=== PATIENT | female | born 1995 | race Caucasian/White ===

== ENCOUNTER 2016-10-19 23:24 | Emergency (ER) | payer SELFPAY ==
[2016-10-19 23:39] LABS: APPEARANCE CLEAR (CLEAR); BACTERIA NONE SEEN /hpf (NONE SEEN); BILIRUBIN NEGATIVE (NEGATIVE); COLOR YELLOW (YELLOW); EPITHELIAL CELLS RARE /hpf (0-5); GLUCOSE NEGATIVE (NEGATIVE); KETONE NEGATIVE (NEGATIVE); LEUKOCYTE ESTERASE NEGATIVE (NEGATIVE); NITRITE NEGATIVE (NEGATIVE); PROTEIN NEGATIVE (NEGATIVE); RED CELLS - URINE 0-5 /hpf (0-5); UROBILINOGEN NORMAL (NORMAL); WHITE CELLS - URINE 0-5 /hpf (0-5)
[2016-10-19 23:41] LABS: HEMATOCRIT 41.1 % (36.0-48.0); HEMOGLOBIN 14.7 g/dL (12-16); LYMPHOCYTES 48.2 % (15-50); MCH 32.7 pg (26.0-34.0); MCHC 35.8 g/dL (31.0-37.0); MCV 91.3 fL (80.0-100.0); MEAN PLATELET VOLUME 9.5 fL (7.4-10.4); NEUTROPHILS 44.3 % (40-80); PLATELET COUNT 272 10x3/uL (130-400); RDW 11.8 % (11.5-14.5); WBC 7.6 10x3/uL (4.8-10.8)
[2016-10-19 23:55] LABS: HCG SERUM NEGATIVE (NEGATIVE)
[2016-10-19 23:56] LABS: AMYLASE - SERUM 86 U/L (25-115); LIPASE 268 U/L (73-393)
[2016-10-19 23:59] LABS: ALBUMIN 3.9 g/dL (3.4-5.0); ALKALINE PHOSPHATASE 57 U/L (46-116); ALT (SGPT) 23 U/L (10-68); CALC OSMOLALITY 279 mosm/kg (275-300); CALCIUM 9.5 mg/dL (8.5-10.1); CARBON DIOXIDE 29.8 mmol/L (21.0-32.0); CHLORIDE - SERUM 102 mmol/L (98-107); CREATININE - SERUM 0.9 mg/dL (0.6-1.3); GLUCOSE 84 mg/dL (74-106); POTASSIUM - SERUM 4.1 mmol/L (3.5-5.1); PROTEIN - SERUM 7.9 g/dL (6.4-8.2); SODIUM 140 mmol/L (136-145); UREA NITROGEN 19 mg/dL (7-18); eGFR NON AFRICAN AMERICAN 85 mL/min (90-120)
== END 2016-10-20 00:30 | disposition home or self-care (01) ==
LOC: D.ER 23:24
PROVIDERS: Family Medicine; Nurse Practitioner Family
DX: A08.4 Viral intestinal infection, unspecified (principal); R11.10 Vomiting, unspecified

== ENCOUNTER 2016-11-27 16:42 | Emergency (ER) | payer MEDICAID ==
[2016-11-27 17:23] LABS: BASOPHILS 0.1 % (0-2); EOSINOPHILS 0.4 % (0-7); HEMATOCRIT 39.1 % (36.0-48.0); HEMOGLOBIN 13.6 g/dL (12-16); IMMATURE GRANULOCYTES 0.1 % (0-5); LYMPHOCYTES 29.5 % (15-50); MCH 32.6 pg (26.0-34.0); MCHC 34.8 g/dL (31.0-37.0); MCV 93.8 fL (80.0-100.0); MEAN PLATELET VOLUME 9.5 fL (7.4-10.4); MONOCYTES 6.5 % (2-11); NEUTROPHILS 63.4 % (40-80); PLATELET COUNT 288 10x3/uL (130-400); RBC 4.17 10x6/uL (4.00-5.40); RDW 12.4 % (11.5-14.5)
== END 2016-11-27 19:27 | disposition home or self-care (01) ==
LOC: D.ER 16:42
PROVIDERS: Family Medicine
DX: Z03.89 Encounter for observation for other suspected diseases and conditions ruled out (principal); Z3A.08 8 weeks gestation of pregnancy

== ENCOUNTER 2017-01-18 15:33 | Emergency (ER) | payer MEDICAID | END 2017-01-18 16:28 | disposition home or self-care (01) | LOC: D.ER 15:33 | DX: L02.415 Cutaneous abscess of right lower limb (principal) ==

== ENCOUNTER 2017-07-24 21:08 | Inpatient (IN) | payer MEDICAID ==
[~2017-07-24] VITALS: Ht 162.6 cm; Wt 93.9 kg
--- NOTE | ~2017-07-24 | DS ---
PATIENT:SHASHA PADILLA :89 MEDICAL RECORD: [id number] DISCHARGE SUMMARY ADMISSION DATE: 07/24/17 DISCHARGE DATE: 07/26/17 DATE OF ADMISSION: 07/24/2017 DATE OF DISCHARGE: 07/26/2017 ADMISSION DIAGNOSIS: Term . DISCHARGE DIAGNOSIS: Mother delivered at term. PROCEDURE: Vaginal delivery. HISTORY OF PRESENT ILLNESS AND INDICATION FOR HOSPITALIZATION: See the H&P in the chart. SUMMARY OF HOSPITALIZATION: The patient was admitted for induction of labor and had subsequent vaginal delivery. The patient had an unremarkable course. At the time of discharge, contraception was discussed. The patient was discharged home with follow up with [facility] in 6 weeks. Standard precautions have been reviewed. TRANSINT:[id number] Voice Confirmation ID: [id number] DOCUMENT ID: [id number] AFTAB VALIENTE MD at 1727 CC: [id number] DICTATION DATE: 08/20/17 0719 COACH WIRER: 08/20/17 1408 DIS IN 07/26/17 [id number] [place] [address]
--- NOTE | ~2017-07-24 | OP ---
PATIENT NAME: SHASHA PADILLA MEDICAL RECORD: [id number] :89 LOCATION:[id number] ADMISSION DATE:07/24/17 SURGEON: MEDARDO ARRIOLA MD DATE OF OPERATION: 07/24/2017 PREDELIVERY DIAGNOSES: 1. at 39 weeks' gestational age. 2. Nonreassuring tracing. POSTDELIVERY DIAGNOSES: 1. Mother delivered at 39 weeks' gestation. 2. Nonreassuring tracing. PROCEDURE: Vacuum-assisted vaginal delivery. ATTENDING: Medardo Arriola MD ANESTHETIC: A 10 mL of 1% lidocaine without epinephrine after the procedure. FINDINGS: Viable male , vertex presentation, DAINA. Nuchal cord times 1 reduced. Deep variable decelerations and terminal bradycardic event necessitating vacuum assist. DESCRIPTION OF PROCEDURE: After verbal consent given, a Kiwi applied and over 3 expulsive efforts, infant delivered. Second-degree laceration with 2-0 and 4-0 chromic repair. is 6 pounds 10 ounces with Apgars of 7 and 9. ESTIMATED BLOOD LOSS: 400 cc. DISPOSITION: Mother and recovered in the room. TRANSINT:[id number] Voice Confirmation ID: [id number] DOCUMENT ID: [id number] MEDARDO ARRIOLA MD at 1308 CC: [id number] DICTATION DATE: 07/24/17 233 HYDROMETER CALIBRATOR: 07/25/17 0244 DIS IN 07/26/17 [facility] [address] [id number]
[2017-07-24] MEDS ORDERED: PRENATAL-U CA1 UDCAP PO (21:54)
[2017-07-24 22:22] VITALS: BP 126/81; BMI 35.6
[2017-07-24 22:47] LABS: HEMATOCRIT 38.4 % (36.0-48.0); HEMOGLOBIN 13.5 g/dL (12-16); MCH 34.6 pg (26.0-34.0); MCHC 35.2 g/dL (31.0-37.0); MCV 98.5 fL (80.0-100.0); MEAN PLATELET VOLUME 11.8 fL (7.4-10.4); RBC 3.9 10x6/uL (4.00-5.40); RDW 13.9 % (11.5-14.5); WBC 11.8 10x3/uL (4.8-10.8)
[2017-07-24 22:52] LABS: UDS - AMPHET NEGATIVE QUAL (NEGATIVE); UDS - BARB NEGATIVE QUAL (NEGATIVE); UDS - BENZO NEGATIVE QUAL (NEGATIVE); UDS - COCAINE NEGATIVE QUAL (NEGATIVE); UDS - OPIATE NEGATIVE QUAL (NEGATIVE); UDS - PCP NEGATIVE QUAL (NEGATIVE); UDS - THC NEGATIVE QUAL (NEGATIVE)
[2017-07-25] VITALS (7 sets, daily range): BP systolic 110–133; BP diastolic 57–86; Ht 162.6 cm; Wt 93.9 kg
[2017-07-26 07:10] VITALS: BP 128/74
[2017-07-26 07:29] LABS: RAPID PLASMA REAGIN Non Reactive (Non Reactive)
[2017-07-26] MEDS ORDERED: IBUPROFEN800 MG PO (12:02)
== END 2017-07-26 12:15 | disposition home or self-care (01) | DRG 775 ==
LOC: D.LDO 21:08 → D.LD 21:10 → D.LDO 22:00 → D.LD 22:02
PROVIDERS: Obstetrics & Gynecology
PROC: 10D07Z6 Extraction of Products of Conception, Vacuum, Via Natural or Artificial Opening (ICD-10-PCS; principal; 2017-07-24)
PROC: 0KQM0ZZ Repair Perineum Muscle, Open Approach (ICD-10-PCS; 2017-07-24)
DX: O76 Abnormality in fetal heart rate and rhythm complicating labor and delivery (principal); Z3A.39 39 weeks gestation of pregnancy; Z37.0 Single live birth; O70.1 Second degree perineal laceration during delivery; O69.81X0 Labor and delivery complicated by cord around neck, without compression, not applicable or unspecified

== ENCOUNTER 2017-08-25 12:26 | Emergency (ER) | payer MEDICAID ==
[2017-07-25 13:45] VITALS: BMI 35.5
[~2017-08-25 12:26] MED LIST: IBUPROFEN800 MG PO; PRENATAL-U CA1 UDCAP PO
== END 2017-08-25 14:15 | disposition home or self-care (01) ==
LOC: D.ER 12:26
DX: Z04.1 Encounter for examination and observation following transport accident (principal)

== ENCOUNTER 2017-09-14 09:51 | Emergency (ER) | payer MEDICAID ==
[2017-07-25 13:45] VITALS: BMI 35.5
[2017-09-14 11:10] LABS: HCG URINE NEGATIVE (NEGATIVE)
[2017-09-14 11:15] LABS: APPEARANCE HAZY (CLEAR); BACTERIA MODERATE /hpf (NONE SEEN); BILIRUBIN NEGATIVE (NEGATIVE); COLOR YELLOW (YELLOW); GLUCOSE NEGATIVE (NEGATIVE); KETONE NEGATIVE (NEGATIVE); NITRITE NEGATIVE (NEGATIVE); PROTEIN NEGATIVE (NEGATIVE); SPECIFIC GRAVITY 1.015 (1.005-1.020); WHITE CELLS - URINE 0-5 /hpf (0-5)
[2017-09-14 11:16] LABS: MUCUS <1+ /lpf (NONE SEEN)
== END 2017-09-14 11:45 | disposition home or self-care (01) ==
LOC: D.ER 09:51
PROVIDERS: Physician Assistant
DX: J06.9 Acute upper respiratory infection, unspecified (principal); J20.9 Acute bronchitis, unspecified; R35.0 Frequency of micturition

== ENCOUNTER 2017-12-10 19:52 | Emergency (ER) | payer MEDICAID ==
[~2017-12-10] VITALS: Ht 162.6 cm; Wt 54.5 kg
[2017-12-10 20:00] VITALS: Ht 162.6 cm; Wt 54.5 kg
[2017-12-10 21:27] LABS: BASOPHILS 0.2 % (0-2); EOSINOPHILS 0.4 % (0-7); HEMATOCRIT 38.5 % (36.0-48.0); HEMOGLOBIN 13.7 g/dL (12-16); IMMATURE GRANULOCYTES 0.1 % (0-5); LYMPHOCYTES 31.1 % (15-50); MCH 31.9 pg (26.0-34.0); MCHC 35.6 g/dL (31.0-37.0); MCV 89.5 fL (80.0-100.0); MEAN PLATELET VOLUME 10.5 fL (7.4-10.4); MONOCYTES 6.7 % (2-11); NEUTROPHILS 61.5 % (40-80); RDW 12.6 % (11.5-14.5); WBC 8.2 10x3/uL (4.8-10.8)
[2017-12-10 21:40] LABS: PLATELET COUNT 259 10x3/uL (130-400)
[2017-12-10 22:06] LABS: ALBUMIN 3.4 g/dL (3.4-5.0); ALKALINE PHOSPHATASE 60 U/L (46-116); ALT (SGPT) 28 U/L (10-68); BILIRUBIN - TOTAL 0.42 mg/dL (0.2-1.3); CALC OSMOLALITY 276 mosm/kg (275-300); CALCIUM 8.1 mg/dL (8.5-10.1); CARBON DIOXIDE 27.3 mmol/L (21.0-32.0); CHLORIDE - SERUM 106 mmol/L (98-107); CREATININE - SERUM 0.7 mg/dL (0.6-1.3); GLUCOSE 83 mg/dL (74-106); POTASSIUM - SERUM 3.6 mmol/L (3.5-5.1); PROTEIN - SERUM 6.7 g/dL (6.4-8.2); SODIUM 139 mmol/L (136-145); UREA NITROGEN 12 mg/dL (7-18); eGFR NON AFRICAN AMERICAN > 90 mL/min (90-120)
[2017-12-10 22:06] LABS: APPEARANCE CLEAR (CLEAR); COLOR YELLOW (YELLOW); SPECIFIC GRAVITY 1.025 (1.005-1.020)
[2017-12-10 22:07] LABS: BACTERIA MANY /hpf (NONE SEEN); BILIRUBIN NEGATIVE (NEGATIVE); GLUCOSE NEGATIVE (NEGATIVE); KETONE NEGATIVE (NEGATIVE); MUCUS <1+ /lpf (NONE SEEN); NITRITE NEGATIVE (NEGATIVE); PROTEIN TRACE mg/dL (NEGATIVE); RED CELLS - URINE 0-5 /hpf (0-5); UROBILINOGEN NORMAL (NORMAL)
[2017-12-10 22:16] LABS: HCG URINE NEGATIVE (NEGATIVE)
[2017-12-10] MEDS ORDERED: TORADOL10 MG PO (22:35)
[2017-12-10] MEDS ORDERED: MACROBID100 MG PO (22:35)
[2017-12-10 23:18] VITALS: BP 132/85
[2017-12-13 09:18] LABS: CHLAMYDIA TRACHOMATIS, NAA Negative (Negative)
== END 2017-12-10 23:18 | disposition home or self-care (01) ==
LOC: D.ER 19:52
PROVIDERS: Family Medicine
DX: R10.31 Right lower quadrant pain (principal); N39.0 Urinary tract infection, site not specified

== ENCOUNTER 2018-05-02 14:54 | Emergency (ER) | payer MEDICAID ==
[~2018-05-02] VITALS: Ht 162.6 cm; Wt 74.1 kg
[~2018-05-02 14:54] MED LIST changes: +MACROBID100 MG PO; +TORADOL10 MG PO
[2018-05-02 15:25] VITALS: Ht 162.6 cm; Wt 74.1 kg
[2018-05-02 16:14] LABS: HCG SERUM NEGATIVE (NEGATIVE)
[2018-05-02 17:15] VITALS: BP 112/74
== END 2018-05-02 17:15 | disposition home or self-care (01) ==
LOC: D.ER 14:54
PROVIDERS: Family Medicine
DX: R42 Dizziness and giddiness (principal)

== ENCOUNTER 2018-05-27 02:01 | Emergency (ER) | payer MEDICAID ==
[~2018-05-27] VITALS: Ht 162.6 cm; Wt 45.5 kg
[2018-05-27 02:03] VITALS: Ht 162.6 cm; Wt 45.5 kg
[2018-05-27 03:20] LABS: APPEARANCE CLEAR (CLEAR); BILIRUBIN NEGATIVE (NEGATIVE); COLOR YELLOW (YELLOW); GLUCOSE NEGATIVE (NEGATIVE); KETONE NEGATIVE (NEGATIVE); NITRITE NEGATIVE (NEGATIVE); PROTEIN NEGATIVE (NEGATIVE); SPECIFIC GRAVITY 1.015 (1.005-1.020); UROBILINOGEN NORMAL (NORMAL)
[2018-05-27 03:36] VITALS: BP 125/77
== END 2018-05-27 03:37 | disposition home or self-care (01) ==
LOC: D.ER 02:01
PROVIDERS: Family Medicine
DX: O20.0 Threatened abortion (principal); Z3A.00 Weeks of gestation of pregnancy not specified

== ENCOUNTER 2019-01-13 20:10 | Inpatient (IN) | payer MEDICAID ==
[~2019-01-13] VITALS: Ht 162.6 cm; Wt 90.3 kg
[2019-01-13] MEDS ORDERED: PRENAVITE1 TAB PO (21:54)
[2019-01-13 22:07] VITALS: BP 111/63; Ht 162.6 cm; Wt 90.3 kg
[2019-01-13 23:04] LABS: HEMATOCRIT 31.9 % (36.0-48.0); HEMOGLOBIN 10.7 g/dL (12-16); MCH 28.8 pg (26.0-34.0); MCHC 33.5 g/dL (31.0-37.0); MEAN PLATELET VOLUME 11.9 fL (7.4-10.4); RBC 3.71 10x6/uL (4.00-5.40); RDW 13.8 % (11.5-14.5); WBC 8.3 10x3/uL (4.8-10.8)
[2019-01-14 01:22] LABS: UDS - AMPHET NEGATIVE QUAL (NEGATIVE); UDS - BARB NEGATIVE QUAL (NEGATIVE); UDS - BENZO NEGATIVE QUAL (NEGATIVE); UDS - COCAINE NEGATIVE QUAL (NEGATIVE); UDS - OPIATE NEGATIVE QUAL (NEGATIVE); UDS - PCP NEGATIVE QUAL (NEGATIVE); UDS - THC NEGATIVE QUAL (NEGATIVE)
[2019-01-14 07:06] VITALS: BP 101/55
--- NOTE | 2019-01-14 07:06 | NUR ---
RECEIVED PT SITTING UP IN BED. AWAKE. AAO X 3. VSS. HRRR WITHOUT AUDIBLE MURMUR. BBS CLEAR. BS X 4. ABDOMEN SOFT/NON-DISTENDED. FUNDUS FIRM AT U/1. RUBRA LOCHIA SMALL AMT. NO CLOTS NOTED. PERINEUM WITH SLIGHT EDEMA. ICE PACK TO PERINEUM PER PT REQUEST. NEG HOMANS' SIGN. PPP. NO EDEMA NOTED TO BLE. SL TO RIGHT HAND. SITE CLEAR. FLUSHES EASILY WITH 10 ML NS. PT DENIES C/O. SR UP X 2. CALL LIGHT IN REACH.
--- NOTE | 2019-01-14 09:01 | NUR ---
PT RINGS CALL LIGHT REPORTING SHE'S READY FOR TRANSFER. THIS RN TO BEDSIDE. PT CURRENTLY UP TO BR. ABLE TO VOID. PERFORMS SELF PERICARE. CLEAN PANTIES,PAD AND GOWN PROVIDED. PT TRANSFERED AMBULATORY TO BR [id number]. PT CURRENTLY DENIES PAIN. FRESH ICE WATER SERVED. PT DENIES FURTHER NEEDS.
--- NOTE | 2019-01-14 09:54 | NUR ---
PT REQUESTS AND RECEIVES ICE PACK FOR PERINEUM.
--- NOTE | 2019-01-14 10:00 | NUR ---
ROUNDS MADE. PT LYING IN BED AWAKE VISITING W/GUESTS. PAIN AND NEEDS ASSESSED. PT REQUEST A SPRITE TO DRINK AND SOMETHING TO EAT. SPRITE SERVED. DIETARY CALLED TO BRING PT A SANDWICH TRAY. PT INFORMED .
--- NOTE | 2019-01-14 10:30 | NUR ---
PT REQUESTING TO GET IN THE SHOWER. BATHING ITEMS PROVIDED. PT'S IV SITE COVERED. PT PLANS TO SHOWER.
--- NOTE | 2019-01-14 10:50 | NUR ---
THIS RN TO ROOM TO TRANSFER PT'S BELONGINGS TO WS. PT STILL HAS NOT SHOWERED, CURRENTLY CHANGING PT'S DIAPER THEN SHE PLANS TO SHOWER.
--- NOTE | 2019-01-14 11:06 | NUR ---
PT NOW READY TO SHOWER. PT'S IV SITE COVERED. PT AWAITNG SIG OTHER TO ARRIVE SO SHE MAY GET IN THE SHOWER.
[2019-01-14 13:20] VITALS: BP 86/49
[2019-01-14 16:00] VITALS: BP 99/57
--- NOTE | 2019-01-14 16:10 | NUR ---
sitting up in bed holding . denies needs. no requests. vs done.
--- NOTE | 2019-01-14 17:45 | NUR ---
RECEIVED SHIFT REPORT FROM STEPAN SULLIVAN RN
--- NOTE | 2019-01-14 18:36 | NUR ---
ASSESSMENT PER FLOW SHEET, VS OBTAINED, SALINE LOCK IN RIGHT HAND INTACT WITH NO REDNESS OR EDEMA, FF, ML, U/1, PT REPORTS LITE BLEEDING WITH NO CLOTS, +FLATUS, NO BM AND VOIDING WITH NO DIFFICULTY, C/O CRAMPING, ADM MOTRIN PER MD ORDERS, SEE EMAR, FRESH H20 SERVED AND CUP OF ICE PROVIDED TO FAMILY MEMBER, PT DENIES FURTHER NEEDS, INFANT IN OPEN CRIB CART AT BEDSIDE
--- NOTE | 2019-01-14 19:19 | NUR ---
PT HOLDING INFANT, RATES CRAMPING 0/10, DENIES NEEDS, FAMILY MEMBER AT BEDSIDE
--- NOTE | 2019-01-14 20:02 | NUR ---
PT PRE SALES NETWORK ENGINEER LIGHT, PT REQUESTED AND PROVIDED INFANT BLANKET AND SHIRT, ALSO, GOWN FOR SELF, REPORTS INFANT SPIT UP ON GOWN, PT DENIES FURTHER NEEDS OR PAIN AT THIS TIME, FAMILY MEMBER HOLDING AT THIS TIME
--- NOTE | 2019-01-14 21:08 | NUR ---
PT WAVE GUIDE ASSEMBLER LIGHT, PT REQUESTED AND SERVED SANDWICH TRAY, BEDDING PROVIDED TO FAMILY MEMBER, IN OPEN CRIB CART AT BEDSIDE, PT DENIES FURTHER NEEDS
--- NOTE | 2019-01-14 22:21 | NUR ---
PT AWAKE, REQUESTED AND SERVED FRESH H20, DENIES FURHTER NEEDS OR PAIN, INFANT IN OPEN CRIB CART AND FAMILY MEMBER AT BEDSIDE
--- NOTE | 2019-01-15 00:15 | NUR ---
PT RESTING WITH EYES CLOSED, RESP QUIET, NO DISTRESS NOTED, LEFT UNDISTURBED AT THIS TIME, IN OPEN CRIB CART AND FAMILY MEMBER AT BEDSIDE
--- NOTE | 2019-01-15 02:04 | NUR ---
PT AWAKE, HOLDING INFANT, DENIES NEEDS OR PAIN AT THIS TIME, FAMILY MEMBER AT BEDSIDE
--- NOTE | 2019-01-15 04:00 | NUR ---
PT RESTING WITH EYES CLOSED, RESP QUIET, NO DISTRESS NOTED, LEFT UNDISTURBED AT THIS TIME, IN OPEN CRIB CART AND FAMILY MEMBER ASLEEP AT BEDSIDE
--- NOTE | 2019-01-15 06:15 | NUR ---
PT AWAKE, HOLDING INFANT, DENIES PAIN, REQUESTED AND SERVED FRESH H20, DENIES FURTHER NEEDS, FAMILY MEMBER ASLEEP AT BEDSIDE
[2019-01-15 07:10] LABS: BASOPHILS 0.1 % (0-2); EOSINOPHILS 0.6 % (0-7); HEMATOCRIT 30.8 % (36.0-48.0); HEMOGLOBIN 10.1 g/dL (12-16); IMMATURE GRANULOCYTES 0.5 % (0-5); MCH 28.5 pg (26.0-34.0); MCHC 32.8 g/dL (31.0-37.0); MCV 86.8 fL (80.0-100.0); NEUTROPHILS 59.8 % (40-80); PLATELET COUNT 212 10x3/uL (130-400); RBC 3.55 10x6/uL (4.00-5.40); RDW 13.9 % (11.5-14.5); WBC 9.5 10x3/uL (4.8-10.8)
--- NOTE | 2019-01-15 07:15 | NUR ---
Dr. Ordonez on unit and to room for am rounds.
[2019-01-15 07:30] VITALS: BP 105/68
--- NOTE | 2019-01-15 07:30 | NUR ---
am assessment completed, pt denies heavy bleeding or passing clots. pt is sitting up in the bed, holding . pt's grandmother asleep on pull out bedisde chair. pt denies all other needs at this time. srup x2, cl/phone within reach.
--- NOTE | 2019-01-15 07:35 | NUR ---
DIETARY SERVES REGULAR BREAKFAST TRAY.
--- NOTE | 2019-01-15 09:11 | NUR ---
rounding completed by this RN. pt sitting up in bed with family at bedside. pt denies pain and all other needs at this time. srupx2, call light and phone within reach.
--- NOTE | 2019-01-15 10:15 | NUR ---
rounding completed by this RN. see emar for intermediate project manager. water provided at pt request. pt in bed holding infant with family at bedside. pt denies pain and all other needs at this time.
[2019-01-15 13:10] LABS: RAPID PLASMA REAGIN Non Reactive (Non Reactive)
--- NOTE | 2019-01-15 13:20 | NUR ---
dr. moreno calls to unit, progress report given to . telephone order received to discharge pt home, to follow up in clinic in 6 weeks, for pt to know that if she has sex in that 6 week period she can become , and for pt to take otc tylenol 325 mg one po q 6 hrs prn pain.
[2019-01-15] MEDS ORDERED: ACETAMINOPHEN325 MG PO (13:32)
--- NOTE | 2019-01-15 14:00 | NUR ---
to pt's room, saline lock removed with cath intact, pt grazyna well. pt now dressing for discharge. pt provided with peripads/panties for discharge.
--- NOTE | 2019-01-15 14:15 | NUR ---
PT OFF UNIT VIA WHEELCHAIR WITH VOLUNTARY SERVICES. IN CARSEAT. PT AND INFANT STABLE.
== END 2019-01-15 14:15 | disposition home or self-care (01) | DRG 807 ==
LOC: D.LD 20:10 → D.WS 01-14 12:15
PROVIDERS: Obstetrics & Gynecology; ADMIT Student in an Organized Health Care Education/Training Program; ATTEND Student in an Organized Health Care Education/Training Program
PROC: 10E0XZZ Delivery of Products of Conception, External Approach (ICD-10-PCS; principal; 2019-01-14)
PROC: 0HQ9XZZ Repair Perineum Skin, External Approach (ICD-10-PCS; 2019-01-14)
DX: O70.0 First degree perineal laceration during delivery (principal); Z37.0 Single live birth; Z3A.39 39 weeks gestation of pregnancy

== ENCOUNTER 2019-06-12 13:47 | Emergency (ER) | payer MEDICAID ==
[~2019-06-12] VITALS: Ht 162.6 cm; Wt 72.7 kg
[~2019-06-12 13:47] MED LIST changes: +ACETAMINOPHEN325 MG PO; +IBUPROFEN600 MG PO; +IUD; +PRENAVITE1 TAB PO
[2019-06-12 13:53] VITALS: Ht 162.6 cm; Wt 72.7 kg
[2019-06-12 14:19] LABS: BASOPHILS 0.2 % (0-2); EOSINOPHILS 0.7 % (0-7); HEMATOCRIT 41.7 % (36.0-48.0); HEMOGLOBIN 14.4 g/dL (12-16); LYMPHOCYTES 40.5 % (15-50); MCH 30.4 pg (26.0-34.0); MCHC 34.5 g/dL (31.0-37.0); MCV 88.2 fL (80.0-100.0); MEAN PLATELET VOLUME 10.2 fL (7.4-10.4); MONOCYTES 6.4 % (2-11); NEUTROPHILS 52.2 % (40-80); RBC 4.73 10x6/uL (4.00-5.40); RDW 13.8 % (11.5-14.5); WBC 5.8 10x3/uL (4.8-10.8)
[2019-06-12 14:23] LABS: PLATELET COUNT 315 10x3/uL (130-400)
[2019-06-12 14:23] LABS: HCG URINE NEGATIVE (NEGATIVE)
[2019-06-12 14:25] LABS: APPEARANCE HAZY (CLEAR); BILIRUBIN NEGATIVE (NEGATIVE); COLOR YELLOW (YELLOW); GLUCOSE NEGATIVE (NEGATIVE); KETONE NEGATIVE (NEGATIVE); NITRITE NEGATIVE (NEGATIVE); PROTEIN NEGATIVE (NEGATIVE); SPECIFIC GRAVITY 1.025 (1.005-1.020)
[2019-06-12 14:26] LABS: MUCUS >1+ /lpf (NONE SEEN); RED CELLS - URINE 0-5 /hpf (0-5); WHITE CELLS - URINE OCC /hpf (NEGATIVE)
[2019-06-12 14:37] LABS: CALC OSMOLALITY 282 mosm/kg (275-300); CALCIUM 9.1 mg/dL (8.5-10.1); CARBON DIOXIDE 28.7 mmol/L (21.0-32.0); CHLORIDE - SERUM 105 mmol/L (98-107); CREATININE - SERUM 0.8 mg/dL (0.6-1.3); GLUCOSE 77 mg/dL (74-106); POTASSIUM - SERUM 3.8 mmol/L (3.5-5.1); SODIUM 142 mmol/L (136-145); UREA NITROGEN 15 mg/dL (7-18); eGFR NON AFRICAN AMERICAN > 90 mL/min (90-120)
[2019-06-12 14:43] LABS: ALBUMIN 3.9 g/dL (3.4-5.0); ALKALINE PHOSPHATASE 62 U/L (30-120); ALT (SGPT) 29 U/L (10-68); BILIRUBIN - TOTAL 0.45 mg/dL (0.2-1.3)
[2019-06-12] MEDS ORDERED: ZOFRAN ODT4 MG/UDTAB PO (15:38)
[2019-06-12 15:46] VITALS: BP 100/61
== END 2019-06-12 15:46 | disposition home or self-care (01) ==
LOC: D.ER 13:47
PROVIDERS: Family Medicine
DX: K52.9 Noninfective gastroenteritis and colitis, unspecified (principal)

== ENCOUNTER 2019-07-28 18:21 | Emergency (ER) | payer MEDICAID ==
[~2019-07-28] VITALS: Ht 162.6 cm; Wt 72.7 kg
[~2019-07-28 18:21] MED LIST changes: +ZOFRAN ODT4 MG/UDTAB PO
[2019-07-28 18:32] VITALS: Ht 162.6 cm; Wt 72.7 kg
[2019-07-28 19:13] LABS: BILIRUBIN NEGATIVE (NEGATIVE); GLUCOSE NEGATIVE (NEGATIVE); KETONE NEGATIVE (NEGATIVE); NITRITE NEGATIVE (NEGATIVE); UROBILINOGEN NORMAL (NORMAL)
[2019-07-28 19:16] LABS: HCG URINE NEGATIVE (NEGATIVE)
[2019-07-28 19:37] LABS: BASOPHILS 0.3 % (0-2); EOSINOPHILS 0.4 % (0-7); HEMOGLOBIN 13.9 g/dL (12-16); IMMATURE GRANULOCYTES 0.1 % (0-5); MCH 30.5 pg (26.0-34.0); MCHC 33.9 g/dL (31.0-37.0); MCV 89.9 fL (80.0-100.0); MEAN PLATELET VOLUME 10.6 fL (7.4-10.4); NEUTROPHILS 44.2 % (40-80); PLATELET COUNT 285 10x3/uL (130-400); RBC 4.56 10x6/uL (4.00-5.40); WBC 6.8 10x3/uL (4.8-10.8)
[2019-07-28 19:41] LABS: CALC OSMOLALITY 271 mosm/kg (275-300); CALCIUM 8.7 mg/dL (8.5-10.1); CARBON DIOXIDE 26.6 mmol/L (21.0-32.0); CHLORIDE - SERUM 102 mmol/L (98-107); GLUCOSE 85 mg/dL (74-106); POTASSIUM - SERUM 3.5 mmol/L (3.5-5.1); SODIUM 136 mmol/L (136-145); UREA NITROGEN 15 mg/dL (7-18); eGFR NON AFRICAN AMERICAN 73 mL/min (90-120)
[2019-07-28 19:50] LABS: ALBUMIN 3.7 g/dL (3.4-5.0); ALKALINE PHOSPHATASE 52 U/L (30-120); ALT (SGPT) 20 U/L (10-68); AMYLASE - SERUM 84 U/L (25-115); BILIRUBIN - TOTAL 0.33 mg/dL (0.2-1.3); LIPASE 269 U/L (73-393); PROTEIN - SERUM 7.3 g/dL (6.4-8.2)
[2019-07-28 20:00] LABS: TROPONIN-I < 0.017 ng/mL (0.000-0.060)
[2019-07-28] MEDS ORDERED: MIRALAX17 GM PO (21:04)
[2019-07-28 22:55] VITALS: BP 102/55
== END 2019-07-28 22:55 | disposition home or self-care (01) ==
LOC: D.ER 18:21
PROVIDERS: Family Medicine
DX: K59.00 Constipation, unspecified (principal)

== ENCOUNTER 2019-08-21 08:35 | Emergency (ER) | payer MEDICAID ==
[~2019-08-21] VITALS: Ht 162.6 cm; Wt 72.7 kg
[~2019-08-21 08:35] MED LIST changes: +MIRALAX17 GM PO
[2019-08-21 08:43] VITALS: Ht 162.6 cm; Wt 72.7 kg
[2019-08-21 09:13] LABS: HCG SERUM NEGATIVE (NEGATIVE)
[2019-08-21 09:14] LABS: CALC OSMOLALITY 274 mosm/kg (275-300); CALCIUM 8.5 mg/dL (8.5-10.1); CARBON DIOXIDE 28.9 mmol/L (21.0-32.0); CHLORIDE - SERUM 103 mmol/L (98-107); CREATININE - SERUM 0.7 mg/dL (0.6-1.3); GLUCOSE 87 mg/dL (74-106); POTASSIUM - SERUM 3.7 mmol/L (3.5-5.1); SODIUM 138 mmol/L (136-145); UREA NITROGEN 12 mg/dL (7-18); eGFR NON AFRICAN AMERICAN > 90 mL/min (90-120)
[2019-08-21 09:20] LABS: ALBUMIN 3.8 g/dL (3.4-5.0); ALKALINE PHOSPHATASE 55 U/L (30-120); ALT (SGPT) 22 U/L (10-68); AMYLASE - SERUM 75 U/L (25-115); BILIRUBIN - TOTAL 0.41 mg/dL (0.2-1.3); LIPASE 200 U/L (73-393); PROTEIN - SERUM 7.5 g/dL (6.4-8.2)
[2019-08-21 09:29] LABS: BASOPHILS 0.2 % (0-2); EOSINOPHILS 0.4 % (0-7); HEMATOCRIT 41.8 % (36.0-48.0); HEMOGLOBIN 14.2 g/dL (12-16); LYMPHOCYTES 45.9 % (15-50); MCV 91.3 fL (80.0-100.0); MEAN PLATELET VOLUME 10.5 fL (7.4-10.4); MONOCYTES 4.7 % (2-11); NEUTROPHILS 48.8 % (40-80); PLATELET COUNT 293 10x3/uL (130-400); RBC 4.58 10x6/uL (4.00-5.40); RDW 12.8 % (11.5-14.5); WBC 4.7 10x3/uL (4.8-10.8)
[2019-08-21 09:58] LABS: BILIRUBIN NEGATIVE (NEGATIVE); GLUCOSE NEGATIVE (NEGATIVE); KETONE NEGATIVE (NEGATIVE); NITRITE NEGATIVE (NEGATIVE); RED CELLS - URINE 0-5 /hpf (0-5); SPECIFIC GRAVITY 1.025 (1.005-1.020); UROBILINOGEN NORMAL (NORMAL)
[2019-08-21 09:59] LABS: BACTERIA MANY /hpf (NEGATIVE)
[2019-08-21] MEDS ORDERED: MACROBID100 MG PO (11:00)
[2019-08-21] MEDS ORDERED: NAPROSYN500 MG PO (11:01)
[2019-08-21 11:59] VITALS: BP 103/63
[2019-08-25 15:09] LABS: CHLAMYDIA TRACHOMATIS, NAA Negative (Negative)
== END 2019-08-21 12:00 | disposition home or self-care (01) ==
LOC: D.ER 08:35
PROVIDERS: Family Medicine
DX: N39.0 Urinary tract infection, site not specified (principal); R10.31 Right lower quadrant pain

== ENCOUNTER 2019-08-30 09:03 | Emergency (ER) | payer MEDICAID ==
[~2019-08-30] VITALS: Ht 162.6 cm; Wt 68.2 kg
[~2019-08-30 09:03] MED LIST changes: +NAPROSYN500 MG PO
[2019-08-30 09:06] VITALS: BP 125/78; Ht 162.6 cm; Wt 68.2 kg
[2019-08-30 09:17] LABS: BILIRUBIN NEGATIVE (NEGATIVE); GLUCOSE NEGATIVE (NEGATIVE); KETONE NEGATIVE (NEGATIVE); NITRITE NEGATIVE (NEGATIVE); UROBILINOGEN NORMAL (NORMAL)
[2019-08-30 09:19] LABS: HCG URINE NEGATIVE (NEGATIVE)
[2019-08-30 10:01] LABS: HCG SERUM NEGATIVE (NEGATIVE)
== END 2019-08-30 10:05 | disposition home or self-care (01) ==
LOC: D.ER 09:03
PROVIDERS: Family Medicine
DX: R11.2 Nausea with vomiting, unspecified (principal); R42 Dizziness and giddiness; Z32.02 Encounter for pregnancy test, result negative

== ENCOUNTER 2019-09-12 09:47 | Emergency (ER) | payer MEDICAID ==
[~2019-09-12] VITALS: Ht 162.6 cm; Wt 59.1 kg
[2019-09-12 09:52] VITALS: BP 105/67; Ht 162.6 cm; Wt 59.1 kg
[2019-09-12 10:21] LABS: BILIRUBIN NEGATIVE (NEGATIVE); GLUCOSE NEGATIVE (NEGATIVE); KETONE NEGATIVE (NEGATIVE); NITRITE NEGATIVE (NEGATIVE); SPECIFIC GRAVITY 1.015 (1.005-1.020); UROBILINOGEN NORMAL (NORMAL)
[2019-09-12 10:29] LABS: HCG URINE POSITIVE (NEGATIVE)
== END 2019-09-12 10:55 | disposition home or self-care (01) ==
LOC: D.ER 09:47
PROVIDERS: Family Medicine
DX: O26.899 Other specified pregnancy related conditions, unspecified trimester (principal); Z3A.00 Weeks of gestation of pregnancy not specified; R10.9 Unspecified abdominal pain; R30.0 Dysuria

== ENCOUNTER 2020-01-31 13:00 | Emergency (ER) | payer MEDICAID ==
[2020-01-31 13:08] VITALS: BP 112/67; Ht 162.6 cm
[2020-01-31] MEDS ORDERED: AUGMENTIN 875-11 TAB PO (15:08)
== END 2020-01-31 15:17 | disposition home or self-care (01) ==
LOC: D.ER 13:00
DX: O26.892 Other specified pregnancy related conditions, second trimester (principal); Z3A.23 23 weeks gestation of pregnancy; J32.9 Chronic sinusitis, unspecified

== ENCOUNTER 2020-07-04 12:00 | Emergency (ER) | payer MEDICAID ==
[~2020-07-04] VITALS: Ht 162.6 cm; Wt 54.5 kg
[~2020-07-04 12:00] MED LIST changes: +AUGMENTIN 875-11 TAB PO
[2020-07-04 12:03] VITALS: Ht 162.6 cm; Wt 54.5 kg
[2020-07-04 12:41] LABS: BASOPHILS 0.2 % (0-2); EOSINOPHILS 0.7 % (0-7); HEMATOCRIT 35.4 % (36.0-48.0); HEMOGLOBIN 11.8 g/dL (12-16); LYMPHOCYTE ABS# 1.95 10x3/uL (1.18-3.74); LYMPHOCYTES 45.6 % (15-50); MCH 27.3 pg (26.0-34.0); MCHC 33.3 g/dL (31.0-37.0); MCV 81.8 fL (80.0-100.0); MEAN PLATELET VOLUME 9.9 fL (7.4-10.4); MONOCYTES 6.8 % (2-11); NEUTROPHILS 46.7 % (40-80); PLATELET COUNT 275 10x3/uL (130-400); RBC 4.33 10x6/uL (4.00-5.40); RDW 16.5 % (11.5-14.5); WBC 4.3 10x3/uL (4.8-10.8)
[2020-07-04 12:42] LABS: BILIRUBIN NEGATIVE (NEGATIVE); KETONE NEGATIVE (NEGATIVE); NITRITE NEGATIVE (NEGATIVE); UROBILINOGEN NORMAL mg/dL (< 2)
[2020-07-04 12:43] LABS: CALC OSMOLALITY 280 mosm/kg (275-300); CALCIUM 8.6 mg/dL (8.5-10.1); CARBON DIOXIDE 27.6 mmol/L (21.0-32.0); CHLORIDE - SERUM 106 mmol/L (98-107); CREATININE - SERUM 0.8 mg/dL (0.6-1.3); GLUCOSE 79 mg/dL (74-106); POTASSIUM - SERUM 3.5 mmol/L (3.5-5.1); SODIUM 142 mmol/L (136-145); UREA NITROGEN 9 mg/dL (7-18); eGFR NON AFRICAN AMERICAN > 90 mL/min (90-120)
[2020-07-04 12:44] LABS: BACTERIA MODERATE HPF (NONE SEEN); SQUAMOUS EPITHELIAL 0-5 HPF (0-4); WHITE CELLS - URINE 0-5 HPF (0-4)
[2020-07-04 12:47] LABS: HCG URINE NEGATIVE (NEGATIVE)
[2020-07-04 12:52] LABS: ALBUMIN 3.5 g/dL (3.4-5.0); ALKALINE PHOSPHATASE 56 U/L (30-120); ALT (SGPT) 45 U/L (10-68); AMYLASE - SERUM 79 U/L (25-115); BILIRUBIN - TOTAL 0.27 mg/dL (0.2-1.3); LIPASE 248 U/L (73-393)
[2020-07-04 12:53] LABS: TROPONIN-I < 0.017 ng/mL (0.000-0.060)
[2020-07-04] MEDS ORDERED: CEPHALEXIN500 M1 PO (13:00)
[2020-07-04] MEDS ORDERED: MACROBID100 MG PO (13:00)
[2020-07-04 13:06] VITALS: BP 112/69
== END 2020-07-04 13:07 | disposition home or self-care (01) ==
LOC: D.ER 12:00
PROVIDERS: Family Medicine
DX: N39.0 Urinary tract infection, site not specified (principal); R10.9 Unspecified abdominal pain

== ENCOUNTER 2020-10-09 19:04 | Emergency (ER) | payer MEDICAID ==
[~2020-10-09] VITALS: Ht 162.6 cm; Wt 80.3 kg
[~2020-10-09 19:04] MED LIST changes: +CEPHALEXIN500 M1 PO
[2020-10-09 19:17] VITALS: Ht 162.6 cm; Wt 80.3 kg
[2020-10-09 21:01] LABS: BILIRUBIN NEGATIVE (NEGATIVE); KETONE NEGATIVE mg/dL (< 1+); NITRITE NEGATIVE (NEGATIVE); PH 5.5 (5.0-8.0); SQUAMOUS EPITHELIAL 4 HPF (0-4); UROBILINOGEN NORMAL mg/dL (< 2); WHITE CELLS - URINE 14 HPF (0-4)
[2020-10-09 21:07] LABS: HCG URINE POSITIVE (NEGATIVE)
[2020-10-09] MEDS ORDERED: ZOFRAN ODT4 MG/UDTAB PO (22:46)
[2020-10-09] MEDS ORDERED: MACROBID100 MG PO (22:46)
[2020-10-10 00:06] VITALS: BP 108/77
== END 2020-10-09 22:55 | disposition home or self-care (01) ==
LOC: D.ER 19:04
PROVIDERS: Emergency Medicine
DX: O26.891 Other specified pregnancy related conditions, first trimester (principal); R11.10 Vomiting, unspecified; N39.0 Urinary tract infection, site not specified

== ENCOUNTER 2020-10-18 14:45 | Emergency (ER) | payer MEDICAID ==
[~2020-10-18] VITALS: Ht 162.6 cm; Wt 68.2 kg
[2020-10-18 15:03] VITALS: BP 108/60; Ht 162.6 cm; Wt 68.2 kg
[2020-10-18 16:32] LABS: BILIRUBIN NEGATIVE (NEGATIVE); KETONE NEGATIVE mg/dL (< 1+); NITRITE NEGATIVE (NEGATIVE); SQUAMOUS EPITHELIAL 2 HPF (0-4); UROBILINOGEN NORMAL mg/dL (< 2); WHITE CELLS - URINE 24 HPF (0-4)
[2020-10-18 16:40] LABS: HCG URINE POSITIVE (NEGATIVE)
[2020-10-18 17:05] LABS: BASOPHILS 0.4 % (0-2); EOSINOPHILS 0.2 % (0-7); HEMATOCRIT 37.3 % (36.0-48.0); HEMOGLOBIN 12.6 g/dL (12-16); LYMPHOCYTES 16.3 % (15-50); MCH 28.7 pg (26.0-34.0); MCHC 33.6 g/dL (31.0-37.0); MCV 85.4 fL (80.0-100.0); MEAN PLATELET VOLUME 8.6 fL (7.4-10.4); MONOCYTES 5.6 % (2-11); NEUTROPHILS 77.5 % (40-80); RBC 4.37 10x6/uL (4.00-5.40); RDW 13.8 % (11.5-14.5); WBC 9.1 10x3/uL (4.8-10.8)
[2020-10-18 17:08] LABS: CALC OSMOLALITY 278 mosm/kg (275-300); CALCIUM 8.2 mg/dL (8.5-10.1); CARBON DIOXIDE 27.7 mmol/L (21.0-32.0); CHLORIDE - SERUM 105 mmol/L (98-107); CREATININE - SERUM 0.8 mg/dL (0.6-1.3); GLUCOSE 73 mg/dL (74-106); PLATELET COUNT 346 10x3/uL (130-400); POTASSIUM - SERUM 3.6 mmol/L (3.5-5.1); SODIUM 140 mmol/L (136-145); UREA NITROGEN 14 mg/dL (7-18); eGFR NON AFRICAN AMERICAN > 90 mL/min (90-120)
[2020-10-18 17:36] LABS: ALBUMIN 3.6 g/dL (3.4-5.0); ALKALINE PHOSPHATASE 52 U/L (30-120); ALT (SGPT) 26 U/L (10-68); BILIRUBIN - TOTAL 0.22 mg/dL (0.2-1.3); HCG - QUANTITATIVE (MATERNAL) 28134 mIU/mL; PROTEIN - SERUM 7.4 g/dL (6.4-8.2)
[2020-10-18] MEDS ORDERED: CEPHALEXIN500 M1 PO (18:21)
== END 2020-10-18 18:00 | disposition home or self-care (01) ==
LOC: D.ER 14:45
PROVIDERS: Emergency Medicine
DX: O23.41 Unspecified infection of urinary tract in pregnancy, first trimester (principal); R10.9 Unspecified abdominal pain; Z3A.01 Less than 8 weeks gestation of pregnancy